=== PATIENT | female | born 1990 | race Two or more races ===

== ENCOUNTER 2023-03-27 02:49 | Emergency (ER) | payer MEDICAID, OTHER ==
[~2023-03-27] VITALS: Ht 482.6 cm; Wt 77.1 kg
[2023-03-27 03:25] VITALS: PULSE 88; RESP 16; O2SAT 100
[2023-03-27] MEDS: SODIUM CHLORIDE 0.9% 1,000 ML IV ONE (03:58)
[2023-03-27 04:07] LABS: Basophils # (auto) 0 10 ^3/uL (0-0.2); Basophils % (auto) 0.6 % (0.0-2.0); Eosinophils # (auto) 0.1 10 ^3/uL (0-0.8); Eosinophils % (auto) 1.3 % (0.0-7.0); Hematocrit 35.6 % (36.0-46.0); Hemoglobin 11.7 g/dL (12.2-16.2); Lymphocytes # (auto) 1.8 10 ^3/uL (0.4-5.4); Lymphocytes % (auto) 30.2 % (10.0-50.0); Mean Corpuscular Hemoglobin 28.3 pg (28.0-32.0); Mean Corpuscular Hgb Conc. 32.9 g/dL (32.0-36.0); Mean Corpuscular Volume 85.9 fL (80.0-100.0); Monocytes # (auto) 0.4 10 ^3/uL (0-1.3); Monocytes % (auto) 6.2 % (0.0-12.0); Neutrophils # (auto) 3.7 10 ^3/uL (1.6-8.6); Neutrophils % (auto) 61.7 % (37.0-80.0); Red Blood Cells 4.14 10^6/uL (4.0-5.20); White Blood Cell 5.9 10^3/uL (4.4-10.8)
[2023-03-27 04:16] LABS: Chloride 110 mmol/L (98-107); Sodium 139 mmol/L (136-145)
[2023-03-27 04:17] LABS: Anion Gap 5 (5-15); Carbon Dioxide 24 mmol/L (20-30)
[2023-03-27 04:18] LABS: Calcium 8.5 mg/dL (8.5-10.1)
[2023-03-27 04:22] LABS: Glucose 98 mg/dL (74-106); Platelet Estimate Adequate
[2023-03-27 04:23] LABS: BUN/Creatinine Ratio 9.8 (10.0-20.0); Blood Urea Nitrogen 5 mg/dL (9-23)
[2023-03-27 05:09] VITALS: BP 109/62; PULSE 89; RESP 16; O2SAT 98
== END 2023-03-27 05:18 | disposition home or self-care (01) ==
LOC: ER 02:49 → EDBD 02:49 → ER 05:17
DX: O26.891 Other specified pregnancy related conditions, first trimester (principal); R10.2 Pelvic and perineal pain; R55 Syncope and collapse; Z88.1 Allergy status to other antibiotic agents; Z3A.01 Less than 8 weeks gestation of pregnancy
CPT/HCPCS: 36415; 80048; 84702; 85025; 93005; 96360; 99284; J7030